=== PATIENT | male | born 1990 | race Caucasian/White ===

== ENCOUNTER 2022-03-25 12:17 | Emergency (ER) | payer SELFPAY ==
[2022-03-25 12:21] VITALS: BP 149/82; PULSE 85; RESP 15; TEMP 37.2; O2SAT 99; BMI 25.5
--- NOTE | 2022-03-25 13:10 | ED_ITS ---
HPI - Skin/Abscess/Foreign Bdy General: Chief complaint: Skin/Abscess/Foreign Body Stated complaint: right arm infection Time Seen by Provider: 03/25/22 12:22 History of Present Illness: Patient is in today for redness, swelling, pain right hand. He thinks he had a spider bite. He reports this started about 2 days ago. He states that he had a sore on his right middle finger that he thought was from a spider bite and now starting last night it started spreading up his hand is very painful. He denies fever, chills, nausea, vomiting. He does not think he is up-to-date on his tetanus vaccination. He did not see a spider. Associated symptoms: Deny chills, fever(s), nausea or vomiting Review of Systems Const: Denies: fever(s), chills or body aches Card: Denies: chest pain, palpitations or irregular heart rhythm Resp: Denies: dyspnea, productive cough or non-productive cough GI: Denies: abdominal pain, nausea or vomiting : Denies: flank pain, difficulty urinating or dysuria Skin/Breast: Reports: other (Redness, swelling, pain right middle finger up dorsal hand stops at wrist) Physical Exam Const: COMMON NORMALS: no acute distress, patient oriented x3 and alert Resp: COMMON NORMALS: normal respiratory effort and No use of accessory muscles Extremity: NARRATIVE EXTREMITY EXAM: There is a scabbed lesion on the right middle finger dorsal side with surrounding erythema that extends onto the dorsal hand all the way to the wrist. This is tender and warm. No definitive areas of fluctuance/abscess appreciated. Patient has full flexion extension of all fingers on the hand. Neuro: COMMON NORMALS: patient oriented x3 SENSORIUM/ORIENTATION: Yes alert Course Vital Signs: Vital signs: Vital Signs Temperature 98.9 F 03/25/22 12:21 Pulse Rate 85 03/25/22 12:21 Respiratory Rate 15 03/25/22 12:21 Blood Pressure 149/82 03/25/22 12:21 Pulse Oximetry 99 03/25/22 12:21 Oxygen Delivery Me thod 03/25/22 12:21 MDM - Skin/Abscess/Foreign Bdy Medicial Decision Making Cellulitis versus abscess Given that there is no definitive area of fluctuance or abscess appreciated we will go ahead and treat patient outpatient for cellulitic infection. Start patient on clindamycin 3 times daily p.o. x7 days. Patient currently has no systemic symptoms vital signs are stable. Advised patient to have a low threshold for returning should he have any new or worsening symptoms at all. Updated tetanus vaccination today. Patient verbalized understanding and agreement with plan of care. Discharged home in stable condition Discharge Plan Discharge Patient Disposition: Home Clinical Impression: Cellulitis Qualifiers: Site of cellulitis: extremity Site of cellulitis of extremity: upper extremity Laterality: right Qualified Code(s): L03.113 - Cellulitis of right upper limb Condition: Stable Prescriptions: New clindamycin HCl 300 mg capsule 300 mg PO TID 7 Days Qty: 21 0RF Discharge Orders: Discharge ED (Routine); Ordered 03/25/22 Ordered By: Dottie Mitchell Discharge Diet: Usual diet Discharge Activity: Resume usual activity Patient Instructions: Cellulitis (ED) Activity Restrictions/Additional Instructions: Take antibiotic as directed. I recommend soaking the hand in warm Epson salt a couple times a day and then drying the hand thoroughly. Follow-up with primary care provider next week for reevaluation. Return to the ER as needed for any new or worsening symptoms. Coding Level of Care Code ED Medical [employer] Consultant for [facility] Are[facility]
[2022-03-25] MEDS: tetanus-dipt-pertussis 0.5 mL SDV IM (13:22)
[2022-03-25] MEDS: clindamycin 150 mg Capsule 300 MG PO (13:22)
[2022-03-25 13:25] VITALS: BP 109/76; PULSE 84; RESP 15; O2SAT 97
== END 2022-03-25 13:26 | disposition home or self-care (01) ==
PROVIDERS: Emergency Provider Nurse Practitioner Family
DX: L03.113 Cellulitis of right upper limb (principal); Z23 Encounter for immunization
CPT/HCPCS: 90471; 90715; 99283